=== PATIENT | female | born 1970 ===

== ENCOUNTER 2023-05-29 10:49 | Day surgery (SDC) | payer OTHER ==
[2023-05-26 10:03] VITALS: BMI 28.8
[2023-05-29] MEDS ORDERED: Ondansetron PF 4 MG/2 ML Vial ONE (12:20)
[2023-05-29] MEDS ORDERED: PROPOFOL 200 MG/20 ML VIAL ONE (12:20)
[2023-05-29] MEDS ORDERED: Lidocaine 1% PF 5 ML VIAL ONE (12:20)
== END 2023-05-29 14:09 | disposition home or self-care (01) ==
LOC: MRI 10:49 → EDBD 12:00 → MRI 14:09
PROVIDERS: ATTEND Neurological Surgery
DX: M54.12 Radiculopathy, cervical region (principal); I10 Essential (primary) hypertension; Z79.899 Other long term (current) drug therapy; Z87.891 Personal history of nicotine dependence; Z98.84 Bariatric surgery status; Z90.710 Acquired absence of both cervix and uterus
CPT/HCPCS: 72141; J2405; J2704